=== PATIENT | female | born 1960 | race Caucasian/White ===

== ENCOUNTER → 2017-02-11 | Outpatient (REF) | payer OTHER | LOC: M LAB REF 12:23 | PROVIDERS: ATTEND Nurse Practitioner Adult Health | DX: R63.4 Abnormal weight loss (principal) ==

== ENCOUNTER → 2017-11-12 | Outpatient (CLI) | payer OTHER | LOC: M WHC 08:46 | DX: Z12.31 Encounter for screening mammogram for malignant neoplasm of breast (principal) ==

== ENCOUNTER 2018-01-04 12:24 | Outpatient (REF) | payer OTHER | END 2018-01-05 | LOC: M LAB REF 12:24 | DX: D05.12 Intraductal carcinoma in situ of left breast (principal) | CPT/HCPCS: 88305 ==

== ENCOUNTER → 2018-09-06 | Outpatient (REF) | payer OTHER | LOC: M LAB REF 09:50 | DX: K92.1 Melena (principal) | CPT/HCPCS: 87507 ==

== ENCOUNTER → 2020-05-31 | Outpatient (CLI) | payer OTHER ==
[~2020-05-31] MED LIST: ANAS1TAB2 PO; CALTCHW5 PO; DILT180C70 PO; FEXO60TA71 PO; HYDR25TAB PO; METF-838 PO; PARO5TAB PO; POTA1TAB23 PO; PRAV20TA2 PO; RAMI1CAP26 PO; ZONI50CA11 PO
--- NOTE | 2020-07-04 14:12 | DEXA ---
AP SPINE L1 - L4 1.955 -1.9 -0.7 LT FEMUR TOTAL 1.007 0.0 1.0 LT NECK 0.923 -0.8 0.4 RT FEMUR TOTAL 0.837 -1.4 0.4 RT NECK 0.946 -0.7 0.6 TOTAL BODY TOTAL OTHER COMMENTS: Normal Bone Densitometry of the left hip. There is low bone density of the spine. There is low bone density of the right hip. The density of the spine has decreased 9.5% since 11/12/2017. The density of the left hip has decreased 7.2% since 11/12/2017. The density of the right hip has decreased 15.3% since 11/12/2017. FOLLOW-UP: Recommendation for the next bone density exam: 2 years. COURTNEY
== END ==
LOC: M WHC 14:03
PROVIDERS: ATTEND Registered Nurse
DX: M85.80 Other specified disorders of bone density and structure, unspecified site (principal)

== ENCOUNTER 2020-06-14 13:51 | Day surgery (SDC) | payer OTHER ==
[~2020-06-14] VITALS: Ht 154.9 cm; Wt 54.0 kg
[~2020-06-14 13:51] MED LIST changes: +LIDOCAINE 2% 100MG/5ML SDV (FOR ANES.) As Ordered ONE; +propofoL 200 MG/20 ML VIAL As Ordered ONE
--- NOTE | 2020-07-25 11:32 | ROOR ---
Patient Name: Sis Ariza Procedure Date: 06/14/2020 1:38 PM Date of : 1960 Age: 60 Room: [facility] Gender: Female Note Status: Finalized Procedure: Colonoscopy Indications: Screening for colorectal malignant neoplasm Providers: Gene Amin Jr, MD Referring MD: Kay Castanon NP Requesting Provider: Medicines: Propofol per Anesthesia Complications: No immediate complications. Procedure: Pre-Anesthesia Assessment: - Prior to the procedure, a History and Physical was performed, and patient medications and allergies were reviewed. The patient is competent. The risks and benefits of the procedure and the sedation options and risks were discussed with the patient. All questions were answered and informed consent was obtained. Patient identification and proposed procedure were verified by the physician and the nurse in the pre-procedure area and in the procedure room. Mental Status Examination: alert and oriented. Airway Examination: normal oropharyngeal airway and neck mobility. Respiratory Examination: clear to auscultation. CV Examination: normal. ASA Grade Assessment: II - A patient with mild systemic disease. After reviewing the risks and benefits, the patient was deemed in satisfactory condition to undergo the procedure. The anesthesia plan was to use moderate sedation / analgesia (conscious sedation). Immediately prior to administration of medications, the patient was re-assessed for adequacy to receive sedatives. The heart rate, respiratory rate, oxygen saturations, blood pressure, adequacy of pulmonary ventilation, and response to care were monitored throughout the procedure. The physical status of the patient was re-assessed after the procedure. The Colonoscope was introduced through the anus and advanced to the cecum, identified by appendiceal orifice and ileocecal valve. The colonoscopy was performed without difficulty. The patient tolerated the procedure well. The quality of the bowel preparation was adequate. Findings: The rectum, recto-sigmoid colon, sigmoid colon, descending colon, transverse colon, ascending colon, cecum, appendiceal orifice and ileocecal valve appeared normal. Impression: - The rectum, recto-sigmoid colon, sigmoid colon, descending colon, transverse colon, ascending colon, cecum, appendiceal orifice and ileocecal valve are normal. - No specimens collected. Recommendation: - Discharge patient to home (ambulatory). - Repeat colonoscopy in 10 years for screening purposes. Gene Amin MD Gene Amin Jr, MD 06/14/2020 2:55:46 PM Number of Addenda: 0 Note Initiated On: 06/14/2020 1:38 PM Estimated Blood Loss: Estimated blood loss: none.
== END 2020-06-14 15:30 | disposition home or self-care (01) ==
LOC: M OPP 13:51
PROVIDERS: ATTEND Surgery
DX: Z12.11 Encounter for screening for malignant neoplasm of colon (principal); E11.9 Type 2 diabetes mellitus without complications; Z79.84 Long term (current) use of oral hypoglycemic drugs; Z79.899 Other long term (current) drug therapy; Z85.3 Personal history of malignant neoplasm of breast

== ENCOUNTER → 2020-08-16 | Outpatient (REF) | payer OTHER ==
[~2020-08-16] MED LIST changes: -LIDOCAINE 2% 100MG/5ML SDV (FOR ANES.) As Ordered ONE; -propofoL 200 MG/20 ML VIAL As Ordered ONE
== END ==
LOC: M LAB REF 12:25
PROVIDERS: ATTEND Nurse Practitioner Adult Health
DX: Z79.899 Other long term (current) drug therapy (principal)

== ENCOUNTER → 2022-06-27 | Outpatient (CLI) | payer OTHER ==
[~2022-06-27] MED LIST changes: -FEXO60TA71 PO; +FEXO60TA98 PO; +HYDR-3490 PO; -HYDR25TAB PO
== END ==
LOC: M WHC 10:58
PROVIDERS: ATTEND Nurse Practitioner
DX: Z13.820 Encounter for screening for osteoporosis (principal); C50.312 Malignant neoplasm of lower-inner quadrant of left female breast; M85.88 Other specified disorders of bone density and structure, other site; M85.851 Other specified disorders of bone density and structure, right thigh

== ENCOUNTER → 2022-09-22 | Outpatient (REF) | payer OTHER | LOC: M LAB REF 16:04 | PROVIDERS: ATTEND Nurse Practitioner Adult Health | DX: Z79.899 Other long term (current) drug therapy (principal) ==

== ENCOUNTER → 2023-05-11 | Outpatient (REF) | payer OTHER | LOC: M LAB REF 16:38 | PROVIDERS: ATTEND Nurse Practitioner Adult Health | DX: E23.6 Other disorders of pituitary gland (principal) ==

== ENCOUNTER → 2024-02-09 | Outpatient (REF) | payer OTHER | LOC: M SFHCWAGY 17:52 | PROVIDERS: ATTEND Nurse Practitioner Family | DX: Z12.4 Encounter for screening for malignant neoplasm of cervix (principal) | CPT/HCPCS: 87624; G0123 ==

== ENCOUNTER → 2024-06-28 | Outpatient (CLI) | payer MEDICARE, OTHER ==
[~2024-06-28] MED LIST changes: +RAMI10CA64 PO; -RAMI1CAP26 PO
== END ==
LOC: M WHC 12:29
PROVIDERS: ATTEND Internal Medicine Hematology & Oncology
DX: Z13.820 Encounter for screening for osteoporosis (principal); C50.212 Malignant neoplasm of upper-inner quadrant of left female breast; M85.88 Other specified disorders of bone density and structure, other site; M85.851 Other specified disorders of bone density and structure, right thigh; M85.852 Other specified disorders of bone density and structure, left thigh

== ENCOUNTER → 2024-12-08 | Outpatient (REF) | payer MEDICARE, OTHER ==
[2024-12-08 18:26] LABS: IRON (FE) 90 UG/DL (50-170); PERCENT SATURATION 27.8 % (13.2-45.0); TOTAL IRON BINDING CAPACITY 324 UG/DL (250-425)
[2024-12-08 18:30] LABS: HEMATOCRIT 47.9 % (36.0-47.0)
[2024-12-08 18:38] LABS: HEPATITIS B SURFACE ANTIGEN NEGATIVE (NEGATIVE)
[2024-12-08 18:59] LABS: HEPATITIS B CORE ANTIBODY IGM NEGATIVE (NEGATIVE); HEPATITIS C VIRUS ABY INDEX < 0.02 INDEX (<0.8)
[2024-12-12 15:52] LABS: LYME TOTAL ANTIBODY CIA <= 0.90 Index (<=0.90)
[2024-12-13 07:28] LABS: ANA SCREEN, IFA NEGATIVE (NEGATIVE)
== END ==
LOC: M LAB REF 16:41
PROVIDERS: ATTEND Nurse Practitioner Adult Health
DX: R74.01 Elevation of levels of liver transaminase levels (principal)

== ENCOUNTER → 2024-12-29 | Outpatient (CLI) | payer MEDICARE, OTHER | LOC: M RAD 14:33 | PROVIDERS: ATTEND Nurse Practitioner Adult Health | DX: R74.01 Elevation of levels of liver transaminase levels (principal); Z90.49 Acquired absence of other specified parts of digestive tract; K76.0 Fatty (change of) liver, not elsewhere classified ==